=== PATIENT | female | born 1940 | race Caucasian/White ===

== ENCOUNTER 2019-08-14 13:47 | Inpatient (IN) | payer OTHER ==
[~2019-08-14] VITALS: Ht 157.5 cm; Wt 80.7 kg
[2019-08-14 13:57] VITALS: BP 175/71
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
[2019-08-14 20:39] VITALS: BP 110/61
[2019-08-14 23:20] VITALS: BP 110/61
--- NOTE | 2019-08-15 03:14 | NUR ---
PT OUT IN DAY ROOM AT START OF THE EVENING. HAS BEEN RESTLESS AND CAN'T SEEM TO GET COMFORTABLE IN BED. CONSTANTLY SETTIN OFF BED ALARM. UP TO BR X3, WITH GOOD RESULTS. SOFT,LOOSE BM. FINALLY SETTLED AFTER THAT AND HAS SLEPT WELL TO THIS POINT IN THE AM.
[2019-08-15 08:31] VITALS: BP 157/69
[2019-08-15 09:07] VITALS: BP 157/69
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
--- NOTE | 2019-08-15 15:10 | NUR ---
SUMEET contacted pt's DPOA Josh Churchill who said pt has 2 siblings, a brother and sister, he is estranged from. He said he recently spoke with her brother and he appeared disinterested in providing assistance with pt. Josh is pt's landlord. He said pt lives alone. SUMEET scheduled a family meeting with him via phone for 08/18 @ 1300. SW team will continue to follow pt during her stay on the unit.
[2019-08-15 19:50] VITALS: BP 179/61
[2019-08-15 21:45] VITALS: BP 179/61
[2019-08-15 22:38] VITALS: BP 179/61
--- NOTE | 2019-08-16 01:46 | NUR ---
PATIENT HAS BEEN IN BED SINCE 1900. SHE COMPLAINS OF ONGOING BACK PAIN. SHE HAS BEEN RINGING HER POLANCO FOR REQUESTS FOR PAIN RELIEF STARTING AN HOUR AFTER SHE HAD TRAMADOL ON DAY SHIFT. PATIENT REQUESTED MED TO HELP HER SLEEP. AT HS TRAZADONE, FLEXERIL AND TRAMADOL GIVEN TO PATIENT AFTER ASSISTING HER TO THE BATHROOM AND BACK TO BED. PATIENT HAS SOMATIC PHYSICAL COMPLAINTS OFF AND ON AND DWELLS ON THIS. SHE C/O HER FEET ARE SWELLING AT TIMES. NOT TONIGHT THOUGH. PATIENT USES WALKER TO WALK TO RESTROOM. SHE IS STANDBY ASSIST X 1. PATIENT SLEEPING SOUNDLY AFTER HS MEDS GIVEN. BED ALARM ON AND BED IN LOW POSITION.
[2019-08-16 08:19] VITALS: BP 155/57
[2019-08-16 08:20] VITALS: BP 142/84
[2019-08-16 19:22] VITALS: BP 193/79
[2019-08-16 20:00] VITALS: BP 142/84
--- NOTE | 2019-08-16 20:11 | NUR ---
HAS REQUESTED AND RECEIVED ULTRAM 50MG PO PRN Q 4 HOURS THIS SHIFT FOR C/O MID-BACK PIAN RATED A 9/10 ON -10 CARLA-IN F/U REASSESSMENT STATES ULTRAM HELPS "A LITTLE" BUT STATES FREQUNTLY "IT IS NOT STRONG ENOUGH-I NEED THE STRONGEST " FACIAL EXPRESSION AND BODY LANGUAGE INCONGRUENT WITH VERBALIZED PAIN REPORTS NO NOTED FACIAL GRIMACING NOTED WITH MOVEMENT-1;1 WITH PT FOR APPROX 25 MJNUTES EXPLORING NON-MEDICINE PAIN MANAGEMENT TECHNIQUES-BREATHING EXERCISES,GUIDED IMAGERY AND VARIOUS GROUNDING AND RELAXATION TECHNIQUES-DOES APPEAR RECEPTIVE TO FEEDBACK OFFERED-TOPICAL ANALGESIC(BENGAY) TO MIDBACK X2 THIS SHIFT WITH REPORT POOR RESULTS-PT UNABLE TO ID EFFECTIVE PAIN MANAGEMENT OTHER THAN "REALLY STRONG MEDICINE"
[2019-08-16 20:45] VITALS: BP 142/84
--- NOTE | 2019-08-17 02:03 | NUR ---
PATIENT HAS BEEN SLEEPING SOUNDLY SINCE HS MEDS GIVEN TO HER. HER PAIN SEEMS TO BE MORE SEVERE THE COUPLE OF HOURS AFTER RECEIVING TRAMADOL, FLEXERIL AND TRAZADONE. PATIENT THINKS THAT DAY NURSE HAS NOT BEEN GIVING HER HER PAIN MEDS. I WENT OVER THE LIST AND TIMES WITH HER THAT THEY WERE GIVEN AND EXPLAINED THAT YES, SHE HAS HAD HER MEDS. PATIENT GETS UP TO THE BATHROOM WITH WALKER BUT NEEDS HELP GETTING OFF THE TOILET. HELD PATIENT'S MINDY QUEVEDO D/T DIAHREA LAST 2 DAYS OFF AND ON.
--- NOTE | 2019-08-17 06:02 | NUR ---
PATIENT SLEPT THRU NIGHT BUT AWOKE AT 0530. SHE CAME TO NURSE'S STATION AND ASKED FOR A PAIN PILL FOR HER MID BACK PAIN. TRAMADOL 50MG PO GIVEN TO PATIENT. PATIENT IS SITTING UP IN DINING ROOM AT THIS TIME.
[2019-08-17 08:31] VITALS: BP 148/58
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
[2019-08-17 08:45] VITALS: BP 148/58
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
--- NOTE | 2019-08-17 09:27 | NUR ---
ADM FLEXERIL 5MG PO FOR PAIN TO MID BACK.
--- NOTE | 2019-08-17 09:27 | NUR ---
ADM TRAMADOL 50MG PO FOR PAIN TO MID BACK OF 10 ON 1-10 SCALE.
[2019-08-17] MEDS ORDERED: PREMPRO 0.625-1 EACH PO (12:43)
[2019-08-17] MEDS ORDERED: SERTRALINE HCL100 MG PO (12:44)
[2019-08-17] MEDS ORDERED: TRAZODONE 150150 M1 PO (12:44)
[2019-08-17] MEDS ORDERED: MELOXICAM15 MG PO (12:46)
[2019-08-17] MEDS ORDERED: HYDROCORTISONE30 GM TOP (12:46)
--- NOTE | 2019-08-17 13:46 | NUR ---
ADM TRAMADOL 50MG PO FOR PAIN TO BACK. PT STATED PAIN IS STILL THE SAME AND NO RELIEF FROM MEDS.
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
--- NOTE | 2019-08-17 16:59 | NUR ---
PT BELCHED ONE TIME AND STATED SHE FELT SOME DECREASE IN PAIN. PT WANTING TO GO TO ER AND SEE THE DR. CALLED DR. PEREZ AND VS TAKEN. PT STATED PAIN IS 10 ON 1-10 SCALE. PT VS 156/82, 86, AND 91% ON ROOM AIR. PT PUTTING WATER ON A DEPEND AND PLACING IT OVER HER CHEST AREA. PT STATED THE PAIN IS LEFT TO RIGHT AND IS SHARP AND IT BANDS AROUND TO BACK.
[2019-08-17 17:00] VITALS: BP 156/82
--- NOTE | 2019-08-17 17:43 | NUR ---
TOOK PT TO XRAY. PT WANTING TO PUT ICE ON HER ABD DUE TO ITS THE ONLY THING THAT HELPS PT ALSO WANTING A PAIN PILL. PT WANTING NURSE TO HURRY. ADM TRAMADOL 50MG PO FOR PAIN TO ABD.
--- NOTE | 2019-08-17 17:50 | NUR ---
APPLIED ICE PACK TO BACK AND FRONT WHERE PAIN IS. PT STATED THIS PAIN IS DRIVING HER NUTS. PT THANKING NURSE FOR HER CARE.
[2019-08-17 21:08] VITALS: BP 200/73
[2019-08-17 22:21] VITALS: BP 173/56
--- NOTE | 2019-08-18 04:03 | NUR ---
Assessments completed. pt a&ox4. stated that antonette doesn't like it here. pt cooperative with care. pt c/o of excruciating pain in her back. ordered meds given with partial relief. pt had a high BP last night. q6hr prn hydralazine ordered and given with some improvements. pt's resting well but will get interrupted with pain. pt would go right back to sleep after getting her pain med. no s/s of distress noted. will cont to monitor
[2019-08-18 07:32] VITALS: BP 155/59
[2019-08-18 12:38] LABS: ABSOLUTE NEUTROPHILS 4.6 thou/uL (1.4-8.2); BASOPHILS 0.4 % (0.0-2.0); EOSINOPHILS 0.1 % (0.0-3.0); HEMATOCRIT 28.2 % (37.0-47.0); HEMOGLOBIN 8.9 gm/dL (12.0-15.0); LYMPHOCYTES 8.4 % (24.0-44.0); MCH 26.6 pg (26.0-34.0); MCHC 31.6 g/dL (28.0-37.0); MCV 84.3 fL (80.0-100.0); MONOCYTES 10.9 % (1.0-8.0); PLATELET COUNT 279 thou/uL (150-400); POLYS 80.2 % (36.0-66.0); RBC 3.35 mil/uL (4.20-5.00); RDW 18.8 % (10.5-14.5); WBC 5.7 thou/uL (4.0-11.0)
[2019-08-18 12:53] LABS: ALBUMIN 2.8 g/dL (3.4-5.0); CALCIUM 8.7 mg/dL (8.5-10.1); POTASSIUM 3.2 mmol/L (3.5-5.1); TOTAL BILIRUBIN 0.7 mg/dL (<0.1-1.0); TOTAL PROTEIN 6.2 g/dL (6.4-8.2)
[2019-08-18 14:04] LABS: ANISOCYTOSIS 2+; PLATELET ESTIMATE NORMAL
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
[2019-08-18 14:22] LABS: URINE BILIRUBIN NEGATIVE (Negative); URINE BLOOD NEGATIVE (Negative); URINE CLARITY CLEAR; URINE COLOR YELLOW; URINE GLUCOSE-RANDOM* NEGATIVE (Negative); URINE KETONES TRACE (Negative); URINE LEUKOCYTES-REFLEX NEGATIVE (Negative); URINE NITRITE-REFLEX NEGATIVE (Negative); URINE PROTEIN (DIPSTICK) NEGATIVE (Negative); URINE SPECIFIC GRAVITY 1.025 (1.005-1.035); URINE UROBILINOGEN 0.2 E.U./dl (0.2-1.0)
--- NOTE | 2019-08-18 15:16 | NUR ---
SUMEET and Dr che spoke with Josh ALFARO and olamide of the past 4 years for a brief update and report. This included recomendations that pt needs 24/7 supervision preferrably in memory care. Pt has limited finances and lives in [place]. Pt was also presetn during the meeting and tried to plea for her d/c but laos became accusatory and name calling towards Dr che. Sumeet completed her DA 124 C for [facility] and spoke with Benny from [place] about [place] medicaid pending and he asked for the referral. He will come out tomorrow to assist with the [place] medicaid application and see pt for a possible admission. Josh was in favor of placment and is willing to assist as needed. Pt is estranged from all family.
[2019-08-18 19:37] VITALS: BP 140/47
--- NOTE | 2019-08-18 22:39 | NUR ---
ASSUMED CARE ON 08/18 @ 19:30, IN THE DAY ROOM SITTING IN A CHAIR, SOCIALIZING WITH PEERS. COOPERATED WITH ASSESSMENT, HRRR, LUNGS CTA, ABD SOUNDS N X 4 Q, HAD A FORMED BM THIS EVENING. TOOK MEDS WHOLE WITH THIN WATER. EDUCATION PROVIDED REGARDING THICKENED WATER. SWOLLOW STUDY SCHEDULED. C/O BOUNDRIES CROSSED BY STAFF ROUNDING Q 12 MINTUES. C/O HAVING TO BE IN A HOSPITAL. DENIES NEED TO BE IN UNIT. C/O PAIN IN BACK, TYLENOL 650 PROVIDED FOR PAIN. IN BED WITH BED IN LOW POSITION, BED ALARM SET, WILL CONTINUE TO MONITOR Q 12 MINUTES FOR PATIENT SAFETY.
--- NOTE | 2019-08-19 00:53 | NUR ---
AWAKE, REQUESTING PAIN MEDS FOR 10/10 BACK PAIN. [id number] PROVIDED. FEET NOTED TO BE EDEMETOUS AND SWOLLEN. YELLOW SOCKS DONNED, HEAT INCREASED REQUESTED. PT RETURNED TO BED. BED ALARM SET, BED IN LOW POSITION.
[2019-08-19 00:57] VITALS: BP 140/47
--- NOTE | 2019-08-19 06:15 | NUR ---
SLEPT 7.4 HOURS OVERNIGHT.
[2019-08-19 19:37] VITALS: BP 139/69
--- NOTE | 2019-08-19 19:42 | NUR ---
0800 Up in dining room with peers without s/o distress. Compliant with meds and cooperative. Asking when she is able to get medication for mid back pain. Intermittently talking on phone and doing other activities. 1000 States back pain is a 10/10 with little improvement over past 24 hrs. Becomes frustrated when additional questions are asked. States she removed lidocaine patch yesterday because she didn't think it was helping pain. Initially was going to refuse patch today at 0900 but then changed her mind. Heating pad applied with multiple requests for repositioning of pad until she discarded it. Tramadol given per request. Denies SI/HI. Orientated to person and place. Verbalizing dislike for unit and anger at MD for keeping her admitted. Regular HR auscultated. Color pink with brisk capillary refill and +3 edema in lower extremities. PRN hydralazine given for SBP of 161. Breath sounds clear t/o and decreased in LLL. No s/o resp distress. Also describing sharp pain across upper abdomen in epigastric area specifically on L side and points to lower ribs. Mylanta given. States she is belching alot this AM. Active bowel sounds over soft, rounded abdomen. Small green brown formed stool this AM per toilet. Voiding yellow urine per toilet. 1 cm circular area at top/between buttocks that is reddened but skin is not broken. Area cleaned and barrier cream applied. Dr. Sandoval aware, suggested tegaderm/optiform drsg. Ambulates with steady gait. 1200 Dr. Sandoval here assessing pt. Pt. states that she wants to be restarted on hormones and is also verbal about pain. Dr. Sandoval dced tramadol and started oxycodone. States that her pain remains a 10. Pain medication given. Intermittently resting in her room. 1400 States oxycodone is working better for pain than the tramadol but continues to rate pain a 10/10. Frequently asks for additional pain medication. Removed lidocaine patch because she said it wasn't working. Tylenol ER given per prn order. Asking for items out of her locker, using the phone and conversing with peers. 1600 Discussed pain issues with Dr. Harper. Pt suggesting taping or binding L rib area to splint ribs. Dr. Harper spoke with Dr. Sandoval via phone. He states he wants to wait a couple of days to assess effectiveness of oxycodone. 1830 Pt. continues to seek pain medication multiple times. States pain remains a 10/10. At times disrupting care of other pts to request meds. Oxycodone given for pain per request and hydralazine given for BP of 189/72. Ambulating around unit and using phone. Buttocks cleaned. Additional 1-3 mm areas of reddness noted about an inch from original 1 cm area of reddness. Optiform drsg. applied.
--- NOTE | 2019-08-20 03:46 | NUR ---
ASSUMED CARE ON 08/19/19 @ 19:15, UP IN THE DAY ROOM SITTING IN A CHAIR AT A TABLE. RATES BACK PAIN @ 10, C/O OF RIBS HURTING ON THE LEFT SIDE. REFUSED SENNA. TOOK PO MEDS WHOLE WITH WATER. ASKS ABOUT MORE MEDS QUITE OFTEN. DENIES SI AND HI. A&O X 2 TO PERSON AND TIME. @ 0100 RATES BACK PAIN 10 AND REQUESTS PRN PAIN MEDS, HYDROCODONE 5/325 PROVIDED. FOLLOW UP PAIN RATED AN 8/10. RETURNED TO BED, EYES CLOSED, RESPIRATIONS EVEN AND UNLABORED. BED IN LOW POSITION, BED ALARM SET.
--- NOTE | 2019-08-20 06:02 | NUR ---
SLEPT 2 HOURS
--- NOTE | 2019-08-20 06:26 | NUR ---
REFUSED PANTOPRAZOLE 40 @ 06:24. NAME OF MEDICATION AND BENEFIT EXPLAINED TO PATIENT. SHE STATED THAT I HAVE A RIGHT TO MY OWN BODY, I HAVE A RIGHT TO REFUSE.
[2019-08-20 08:00] VITALS: BP 179/57
[2019-08-20 09:46] VITALS: BP 139/69
--- NOTE | 2019-08-20 11:57 | NUR ---
PT. ASKED FOR THE PHONE TODAY AND PROMPTLY CALLED 911. SHE STATED THAT PEOPLE ARE BEING MEAN TO HER. SECURITY CAME UP INFORMING STAFF OF THE PHONE CALL. THIS RN WENT TO THE PATIENT ROOM AND RETRIEVED THE PHONE. PT. WAS INFORMED THAT SHE WILL NOT BE ABLE TO USE THE PHONE WITHOUT SOMEONE DIALING THE PHONE AND MONITORING THE CALLS SINCE THIS HAPPENED LAST NOC AND THIS MORNING.
[2019-08-20 13:14] VITALS: BP 179/57
--- NOTE | 2019-08-20 16:06 | NUR ---
SUMEET talked with pt and asked her what bills has she been concerned about and she replied her rent, car insurance, and cell phone. She says at this time she does not have utilities. The psych doctor talked with SUMEET and explained she will need a payee. SW team will continue to follow pt during her stay on the unit.
--- NOTE | 2019-08-20 16:13 | NUR ---
0700 Assumed care this morning. Patient not very happy that I will be the nurse taking care of her.patient has lidocane patch on the righ upper back. Hydrocodone was admnistered later for pain too. She kept saying I can only give her medications that's all("You can only givve me medications i don't fadia you to help me with anything else"). Infront of she said "I don't want you helping me." Patient refused a new order of Risperdone, but the doctor changed it to IM Haldol which i was able to administer in the presense of the physician and Krystal RN. Giving her the injection she really didn't want me to take care of her anymore. She reported it to the social media executive. 1600: Krystal RN will help around with nursing care in case she needs something. Care will continue as intended and with no bias. 1630: patient calm and relaxing at the activity room. Will continue to monitor.
[2019-08-20 19:20] VITALS: BP 137/62
--- NOTE | 2019-08-21 00:53 | NUR ---
ASSUMED CARE FROM DAY SHIFT PT VERY RESTLESS REQUESTING PAINMEDIATION AND SLEEPING PILL, PT ASSESS AND HS MEDICATION GIVEN WITH PAIN PILL. PT AWAKE WONDERING IN ROOM REUSED TO LIE DOWN TO REST , ALERT ORIENTED X4 , GAIT STEADY WITHOUT WALKER. DR BARNES CALLED AND NOTED PT ONLY SLEPT 2 HOURS THE NIGHT BEFORE AND INFORMED PT OF RESTLESS BEJHAVIOR , ORDER RECIEVED FOR GOEDON IM TO BE GIVEN. PT AGREED TO MEDICATION AND MED GIVEN , BED ALARM FOR SAFETY. WILL CONTINUE TO FREQ CHECK AND REPORT CHANGES .
--- NOTE | 2019-08-21 01:24 | NUR ---
40 MINS AFTER IM INJECTION OF GEODON GIVEN REMAIN AWAKE WONDERING AROUND ROOM , PT THEN WALKED OUT TO DAYROOM , AND PLACED IN RECLINDER CHAIR, WILL SEE IF PT WILL SLEEP THEN IF NOT WILL CALL DR BARNES.
--- NOTE | 2019-08-21 02:21 | NUR ---
HALDOL IM GIVEN DUE TO PT CONITNUE TO BE AGITATED AND WONDERING OUTSIDE OF ROOM AND REFUSE TO SLEEP EVEN AFTER IM GEODON GIVEN. WILL CONINTUE TO MONITOR CLOSLEY WITH BED ALARM ON FOR SAFETY.
[2019-08-21 09:06] VITALS: BP 173/63
[2019-08-21 11:30] VITALS: BP 156/56
--- NOTE | 2019-08-21 14:33 | NUR ---
0745 Lying in bed. States pain is better and it is about a 5. Denies SI/HI. Orientated to person and place but not time. States she feels tired and wiped out. Flat affect. Calm and cooperative. Breath sounds clear t/o, diminished in LLL. Respiratory rate 16-24, slightly tachypnea with exertion. O2 sats in 90s. Reg HR auscultated. Color pink with brisk capillary refill. +3 pitting edema in lower extremities. Independent with voids. States she had a large soft stool this AM. Active bowel sounds over soft, rounded abdomen. Redness between buttocks improved from 2 days ago, cleaned and ointment applied. 1000 Initially refused Lidocaine patch stating that it made the pain worse. Then stated pain increased to 8 from 5 this AM. Tylenol ER given PO. Hydralazine given d/t HTN. Sitting eating breakfast. 1200 Assisted with shower by MEDICAL BILLER CODER, bed changed. States pain increased to 10. Facial grimacing. Lidocaine patch placed after shower, now requesting that it be on her left ribs. Continues to c/o fatigue.
[2019-08-21 19:47] VITALS: BP 153/93
--- NOTE | 2019-08-22 02:17 | NUR ---
ASSUMED CARE FROM DAY SHIFT PT UP AT NURSES STATION REQUESTING PAIN MEDICATION, TYLENOL PO GIVEN GAIT STEADY PT ALERT AND ORIENTED TO SELF AND PLACE. PT ALSO ASKING TO BE TUCKED INTO BED . ENCOURAGE PT TO GET INTO BED AFTER HS MEDICATION TAKEN AND PT WAS ABLE TO PULL COVER UP AND COVER SELF WITHOUT ISSUES. NORCO PO GIVEN LATER DURING THE SHIFT FOR RIB AND BACK PAIN. BED ALARM ON FOR SAFETY, WILL CONITNUE TO MONITOR FREQ AND ENCOUAGE PT TO USE WALKER WHEN UP.
[2019-08-22 07:44] LABS: CREATININE 0.9 mg/dL (0.6-1.0); POTASSIUM 3.4 mmol/L (3.5-5.1)
[2019-08-22 08:14] VITALS: BP 183/58
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
[2019-08-22 09:11] VITALS: BP 183/58
--- NOTE | 2019-08-22 09:30 | NUR ---
PT IN ROOM AFTER BREAKFAST. PT STATED SHE STILL HAS PAIN TO ABD, BOWEL MOVEMENTS ARE BETTER. PT UP AD REZA AT TIMES AND USES WALKER. DEPENDING ON HER PAIN, PT SOMETIMES USES W/C TO GET AROUND.
--- NOTE | 2019-08-22 12:07 | NUR ---
ADM HYDROCONE 5MG PO FOR PAIN TO BACK OF 10 ON 1-10 SCALE.
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
--- NOTE | 2019-08-22 17:40 | NUR ---
ADM HYDROCODONE 5MG PO FOR PAIN TO BACK OF 10 ON 1-10 SCALE.
[2019-08-22 17:53] VITALS: BP 149/68
[2019-08-22 20:05] VITALS: BP 163/87
--- NOTE | 2019-08-22 21:56 | NUR ---
ASSUMED CARE ON 08/22/19 AT ABOUT 19:20, PATIENT AMBULATING FROM HER ROOM TO THE NURSES DESK ASKING FOR A PHONE TO MAKE A PHONE CALL. WHEN ASSESSED, PATIENT INDICATED THAT SHE WANTED A BIBLE, AND HAD ASKED THE [facility] FOR ONE. ALSO THAT SHE WANTED TO SPEAK TO A RELIGOUS AUTISM SPECIALIST. INQUIRY MADE OF GRAPHITE DISK ASSEMBLER TO ACQUIRE A BIBLE. PATIENT INDICATED 10 ON THE PAIN SCALE. WILL REASSESS PAIN WHEN IT IS TIME TO TAKE NORCO @ 23:45.
[2019-08-23 01:29] VITALS: BP 160/78
--- NOTE | 2019-08-23 03:29 | NUR ---
AWOKE @ 0315 WITH 10/10 BACK PAIN. NORCO 5/325 PROVIDED, WHOLE WITH WATER. VOIDED URINE, CONTINENT AND ASSISTED TO BED. BED IN LOW POSITION. PATIENT IS VERY NEEDY AND REQUESTS ASSISTANCE WITH THINGS THAT SHE CAN DO FOR HERSELF. WHEN EDUCATED THAT SHE NEEDS TO DO THE THINGS FOR HERSELF THAT SHE CAN, IS MANIPULATIVE AND USES EMOTIONAL BLACKMAIL TO GET HER WAY.
--- NOTE | 2019-08-23 05:34 | NUR ---
slept 6 hours overnight
[2019-08-23 07:50] VITALS: BP 172/65
[2019-08-23 10:20] VITALS: BP 172/65
--- NOTE | 2019-08-23 10:27 | NUR ---
0650 REPORT RECEIVED FROM OVERNIGHT SHIFT, PATIENT WAS SLOW MOVING THIS AM FOR BREAKFAST. PATIENT STATES SHE WAS TIRED AND DID NOT KNOW WHY, PATIENT TOOK MEDICATION WIHOUT INCIDENCE. PATIENT PARTICIPATES IN GROUP AND SOMETIMES ASK FOR PAIN MEDICATION BEFORE TIME SCHEDULED. I NOTICE ON THE MORNING MEDICATION PATIENT HAS ARTHRITIS TYLENOL TO HELP WITH NARCO. WILL CONTINUE TO MONITOR PATIENT FOR SAFETY AND BEHAVIORS.
--- NOTE | 2019-08-23 13:34 | NUR ---
Date of Admission: 08/14/19 Date of Activity Therapy Assessment:08/17/2019 Activity Goal: Pt will attend two groups per day Initial Goal: Pt will attend two recreation therapy groups per day until discharge to improve decision making and direction following skills. Weekly progress towards goal:Did not achieve Group participation level:Minimal Behaviors observed: Pt has only come to one grou psince intake. Pt did enjoy pet therapy. Pt has been seen holding postive conversations with peers and visitors. Plan: Change group goal to one group per day.
[2019-08-23 19:45] VITALS: BP 132/67
[2019-08-23 19:54] VITALS: BP 188/69
--- NOTE | 2019-08-24 03:53 | NUR ---
ASSUMED CARE OF PATIENT AT 1915 ON 08/23/19. PATIENT APPEARS UNKEMPT AND DISHEVELED UPON ONE TO ONE WITH PATIENT. THIS NURSE LEFT ROOM AND ENTERED WITH HS MEDICATIONS AND SHE WAS NUDE WAIST DOWN. THIS NURSE OFFERED PATIENT A GOWN. SHE DENIED SI HI AND HALLUCINATIONS. HER CHIEF COMPLAINT WAS BACK PAIN AND STATES 'I NEED TO GET IT LOOKED AT SO BADLY WHEN I GET OUT OF HERE.' THIS NURSE ENCOURAGED PATIENT TO DISCUSS WITH PHYSICIAN. SHE IS MEDICATION COMPLIANT, NO S/S OF DISTRESS, NO FACIAL GRIMACING. WILL CONTINUE TO MONITOR AND MAINTAIN Q12 CHECKS TO ENSURE SAFETY AT ALL TIMES.
[2019-08-24 09:25] VITALS: BP 161/49
--- NOTE | 2019-08-24 10:43 | NUR ---
Pt. eventually got up for breakfast, she was reminded multiple time that breakfast was being served in the dayroom, she was up, dressed and not well groomed, she is meal and medication compliant, she denies SI/HI and AVH, quiet while sitting at table, no conversation noted with any of her peers. Continue to monitor for safety and behaviors.
[2019-08-24 13:33] LABS: FOLIC ACID 6.9 ng/mL (8.6-58.9); TSH 1.365 uIU/mL (0.358-3.740)
[2019-08-24 20:23] VITALS: BP 187/70
--- NOTE | 2019-08-25 01:38 | NUR ---
ASSUMED CARE ON 08/24/19 @ 19:15, SITTING IN THE DAY ROOM IN A RECLINER. GETS UP AND AMBULATES TO HER ROOM, MUST BE REMINDED EACH TIME TO USE HER WALKER. TOOK HS MEDS WHOLE WITH WATER. REQUESTED NORCO 5/325 FOR BACK PAIN OF 1010, PROVIDED @ 21:15. TOILETS SELF, REPORTS BM TODAY. HRRR, LUNGS CTA, ABD SOUNDS N X 4 Q. PATIENT COMES TO THE DOOR AND REQUESTS TO BE "TUCKED IN TO BED" REPEATEDLY. AFTER BEING TUCKED IN ONCE, PATIENT REMINDED THAT SHE IS ABLE TO DO THIS FOR HERSELF, AND SHE PULLS THE BLANKETS UP FOR HERSELF SUCCESSFULLY. MUST BE REMINDED TO WEAR NON SLIP SOCKS, AND NOT TO WALK ON THE FLOOR BAREFOOT. IT WAS NECESSARY TO PHYSICALLY PUT PATIENTS SOCKS ON HER, SHE GAVE MULTIPLE REASONS WHY SHE DID NOT LIKE WEARING SOCKS.
[2019-08-25 04:46] VITALS: BP 187/70
--- NOTE | 2019-08-25 06:33 | NUR ---
slept 7.2 hours overnight
--- NOTE | 2019-08-25 07:59 | NUR ---
ASSUMED CARE AT 0700 THIS MORNING. PT. AMBULATED INDEPENDEDLY FROM HER ROOM TO THE NURSES STATION. SHE THEN SAID SHE NEEDED A W/C. SHE SAT DOWN IN A W/C. ASSESSMENT COMPLETED. SHE STATED SHE HAD A B/M THIS MORNING. BOTH LOWER EXTREMITIES EDEMATOUS +3 TO +4. SHE WAS ASKED TO PUT HER FEET UP AT TIMES SO THE SWELLING CAN BE REDUCED. LUNGS CTA, HRR. + BOWEL SOUNDS.
--- NOTE | 2019-08-25 09:02 | NUR ---
Pt was denied at [facility]. Anna sent more referrals to [facility]. ANNA spoke with Birgit at [facility] and sent referrals to [facility] and [facility], [facility] and [facility]
--- NOTE | 2019-08-25 09:12 | NUR ---
Pt will have an assessment today with admissions from [facility]
[2019-08-25 09:21] VITALS: BP 167/62
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
[2019-08-25 15:43] VITALS: BP 167/62
[2019-08-25 19:35] VITALS: BP 114/79
[2019-08-25 19:49] VITALS: BP 160/63
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
[2019-08-26 04:05] VITALS: BP 160/63
--- NOTE | 2019-08-26 09:11 | NUR ---
ANNA spoke with pt's DPOA Josh [phone] and he stated that he wanted another family meeting for today at 2:30pm. Anna Set that up.
--- NOTE | 2019-08-26 09:53 | NUR ---
ANNA spoke with [place] adult protective services Madison Prabhakar [phone]. Pt had a hotline call made on her due to safety concerns in the home. Anna reported that this pt's DPOA was inacted and that we are recomending Memory care placement. Madison was pleased to hear this. She also reported that she can help with the [place] medicaid process and request bank statements as needed.
[2019-08-26 11:50] VITALS: BP 152/49
--- NOTE | 2019-08-26 11:56 | NUR ---
0659 REPORT RECEIVED FROM OVERNIGHT SHIFT, PATIENT UP IN THE DAY ROOM ATE BREAKFAST TOOK MEDICATION WITHOUT INCIDENCE. PATIENT DID NOT ASK FOR NORCO THIS AM. I GAVE HER ARTHRITIS TYLENOL WITH AM MEDICATION. PATIENT HAS NOT COMPLAINED LIKE SHE USUALLY DOES, COOPERATIVE INTERACTS WITH OTHER PATIENTS. WILL CONTINUE TO MONITOR PATIENT FOR BEHAVIORS AND SAFETY.
--- NOTE | 2019-08-26 13:23 | NUR ---
Birgit with [facility] spoke with nursing and asked of rmore notes while she visited today. Then she asked the referral be resent to [facility] and [facility] and to include the medicaid irvin. SUMEET completed this task
--- NOTE | 2019-08-26 13:24 | NUR ---
[facility] and left [facility] requesting that she get 3 months of bank statements.
[2019-08-26 15:07] VITALS: BP 152/49
--- NOTE | 2019-08-26 15:30 | NUR ---
SUMEET met with Dr Harper and Josh ALFARO to discuss meds changes and d/c plans. Josh is willing to assist with the financial organization for this pt. Pt was present with Josh and they called the post office to picker box operator her mail and to call her [email or web address] to request some bank records. Sw made copies of her insurance card and ID. SW recieved a call from [facility] in [place] and they accpeted this pt. They requested ID, DPOA, and DA 124 C paperwork to be faxed , and then set up a picker box operator time for noon. SUMEET reported this to Josh Crowder and the pt.
--- NOTE | 2019-08-26 15:35 | NUR ---
[facility] [address] [place] [id number] [phone]
[2019-08-26 19:55] VITALS: BP 153/54
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
--- NOTE | 2019-08-27 08:21 | NUR ---
Sw made packet for d/c and provided nursing with report number. Will fax d/c summary and meds list when it is ready prior to d/c
[2019-08-27 08:53] VITALS: BP 179/76
[2019-08-27] MEDS ORDERED: ARICEPT 5 MG TAB5 MG PO (11:22)
[2019-08-27] MEDS ORDERED: CYCLOBENZAPRINE5 MG PO (11:26)
[2019-08-27] MEDS ORDERED: LISINOPRIL10 MG PO (11:26)
[2019-08-27] MEDS ORDERED: MOBIC15 MG PO (11:27)
[2019-08-27] MEDS ORDERED: RISPERDAL2 MG PO (11:28)
[2019-08-27] MEDS ORDERED: ZOLOFT100 MG PO (11:28)
[2019-08-27] MEDS ORDERED: SENNA-TIME S T1 EACH PO (11:29)
[2019-08-27] MEDS ORDERED: PROTONIX40 M1 PO (11:29)
[2019-08-27] MEDS ORDERED: PROBIOTIC1 EAC1 PO (11:29)
[2019-08-27] MEDS ORDERED: PREMARIN0.625 MG PO (11:30)
[2019-08-27] MEDS ORDERED: CALCITONIN-SAL3.7 ML NASAL (11:31)
[2019-08-27] MEDS ORDERED: FOLIC ACID1 MG PO (11:31)
--- NOTE | 2019-08-27 12:28 | NUR ---
DISCHARGE INSTRUCTIONS REVIEWED WITH PT DOMINIC GLEZ VIA PHONE HE IS REQUESTING DC PAPERWORK BE E-MAILED TO HIM AND SW NOTIFIED OF THIS REQUEST. REPORT CALLED TO MYKE AT FACILITY,BELONGINGS INVENTORY COMPLETED AND BELONGINGS SENT WITH PT. AT TIME OF DC MICHELLE WAS RELUCTANT INITALLY TO LEAVE STATING "I'M NOT GOING ANYWHERE BUT HOME" AGREEABLE TO DC AFTER SPEAKING WITH AND SUMEET CALERO. ALERT AT TIME OF DC. DOES REPORT MILD CHRONIC PAIN RATED A 5 ON 1-10 SCALE. LEFT UNIT ACCOMNIED BY PROTOTYPE DEICER ASSEMBLER VIA AT APPROX 1200-TO TRANSPORT WITH Real Time Translation DRIVER.
--- NOTE | 2019-08-28 09:14 | NUR ---
On 08/27/19 [facility] called and stated they found bed bugs in Marti's belongings. Housekeeping had cleaned her room by this time. I went into her room with another staff memeber and we examined the room. There was no sign of bed bugs. I then looked in the patient belongings room and did not see any bugs. When Marti discharged, I was the one who checked off her inventory sheet. There were no bugs in her belongings. Today, EVS and I examined the bed that the patient had slept in, we also examined the patinet belongings room. There was no sighting of bugs. I called [facility] and spoke with Ghada. I informed her of our search for signs of bugs and we had not found any. Pharmacy found medication that was left and we will mail these medication to [facility]. Ghada, thanked me for the information and for following up with her.
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
== END 2019-08-27 12:00 | DRG 57 ==
LOC: SBH 13:47
PROVIDERS: Hospitalist; ADMIT Psychiatry & Neurology Psychiatry
PROC: 0HBRXZZ Excision of Toe Nail, External Approach (ICD-10-PCS; principal; 2019-08-18)
DX: G30.9 Alzheimer's disease, unspecified (principal); F02.81 Dementia in other diseases classified elsewhere, unspecified severity, with behavioral disturbance; F23 Brief psychotic disorder; F29 Unspecified psychosis not due to a substance or known physiological condition; L60.3 Nail dystrophy; B35.1 Tinea unguium; S90.415A Abrasion, left lesser toe(s), initial encounter; S90.414A Abrasion, right lesser toe(s), initial encounter; F41.9 Anxiety disorder, unspecified; S09.90XA Unspecified injury of head, initial encounter; R09.02 Hypoxemia; D53.9 Nutritional anemia, unspecified; E53.8 Deficiency of other specified B group vitamins; E87.6 Hypokalemia; Z98.42 Cataract extraction status, left eye; Z98.41 Cataract extraction status, right eye; Z80.0 Family history of malignant neoplasm of digestive organs; Z87.81 Personal history of (healed) traumatic fracture; Z79.899 Other long term (current) drug therapy
CPT/HCPCS: 10880